=== PATIENT | female | born 1995 | race Caucasian/White ===

== ENCOUNTER 2023-07-05 11:39 | Outpatient (CLI) | payer OTHER, SELFPAY ==
--- NOTE | ~2023-07-05 | XR_ITS ---
EXAMINATION: XR hysterosalpingogram DATE: 07/05/2023 12:24 INDICATION: Fertility testing. Trying to conceive TECHNIQUE: Multiple fluoroscopic images were obtained during contrast infusion into the endometrial c anal of the uterus by the primary physician. Fluoroscopy exposure time was 1.9 minutes. A total of 14 fluoroscopic images were recorded. Total DAP was 15.174 Gycm^2 FINDINGS: The uterine cavity demonstrates normal morphology. The left fallopian tubes is normal in caliber and patent with normal left-sided spillage of contrast into the peritoneum. No evident contrast opacifi cation of the right fallopian tube. IMPRESSION: 1. Likely occluded right fallopian tube which remains unopacified. 2. Normal uterus and patent left fallopian tube with left-sided spillage of contrast into the periton eum. Reviewed, dictated and finalized at location [facility] [facility] IMPRESSION: 1. Likely occluded right fallopian tube which remains unopacified. 2. Normal uterus and patent left fallopian tube with left-sided spillage of con trast into the peritoneum.
--- NOTE | 2023-07-05 12:54 | W.PM.PROC2 ---
Procedure Note - Detailed Date of Procedure 07/05/23 Pre-op Diagnosis Encounter for procreative management, unspecified Post-op Diagnosis Same Procedure Performed Hysterosalpingogram Surgeon Bobby Win MD Anesthesia None Indications female infertility Findings patent left fallopian tube, no flow through right fallopian tube Description of Procedure R/b/a of the procedure were discussed, consent was obtained. hCG negative. The patient was placed supine on the x ray table. A speculum was placed in the vagina. The cervix was cleansed with betadine. The HSG catheter was inserted into the cervix and the balloon was inflated. Under fluoro guidance, contrast was injected into the uterine cavity, with spillage seen almost immediately in the left tube, however no spillage was seen on the right side. Pressure was increased however still no spillage was seen on the right. The catheter was deflated and removed, followed by the speculum. The patient tolerated the procedure well. Complications No immediate complications Condition Stable Disposition Same day
== END 2023-07-05 11:40 | disposition home or self-care (01) ==
PROVIDERS: PCP Physician Assistant; Visit Provider Obstetrics & Gynecology
DX: Z31.9 Encounter for procreative management, unspecified (principal)
CPT/HCPCS: 58340; 74740; Q9966

== ENCOUNTER 2024-04-24 16:45 | Outpatient (CLI) | payer OTHER, SELFPAY ==
--- NOTE | ~2024-04-24 | XR_ITS ---
Thoracic spine: Clinical Indication: Back pain AP and lateral views were performed. No fracture is seen. There is normal alignment of the vertebrae. The intervertebral disc spaces appe ar normal. Paravertebral soft tissues appear normal. Impression: No significant abnormalities noted. Reviewed, dictated and finalized at [facility]. Impression: No significant abnormalities noted.
== END 2024-04-24 16:46 | disposition home or self-care (01) ==
PROVIDERS: PCP Physician Assistant; Visit Provider Physician Assistant
DX: M54.6 Pain in thoracic spine (principal)
CPT/HCPCS: 72072